=== PATIENT | female | born 2000 | race Caucasian/White ===

== ENCOUNTER 2023-01-16 21:20 | Emergency (ER) | payer OTHER ==
[~2023-01-16] VITALS: Ht 165.1 cm; Wt 65.8 kg
[2023-01-16] MEDS ORDERED: ESCITALOPRAM OX10 MG PO (21:32)
[2023-01-16] MEDS ORDERED: NORTREL 1-35 21 EACH PO (21:32)
[2023-01-16] MEDS ORDERED: FLOVENT HFA12 GM INH (21:33)
[2023-01-16] MEDS ORDERED: PROVENTIL HFA6.7 GM INH (21:34)
== END 2023-01-16 21:59 | disposition home or self-care (01) ==
LOC: ED 21:20
DX: S06.0XAA Concussion with loss of consciousness status unknown, initial encounter (principal); R11.0 Nausea; H53.149 Visual discomfort, unspecified; W22.8XXA Striking against or struck by other objects, initial encounter; Y93.68 Activity, volleyball (beach) (court); Y92.39 Other specified sports and athletic area as the place of occurrence of the external cause; Y99.8 Other external cause status

== ENCOUNTER 2024-01-05 19:52 | Emergency (ER) | payer SELFPAY ==
[~2024-01-05] VITALS: Ht 165.1 cm; Wt 79.4 kg
[~2024-01-05 19:52] MED LIST: ESCITALOPRAM OX10 MG PO; FLOVENT HFA12 GM INH; NORTREL 1-35 21 EACH PO; PROVENTIL HFA6.7 GM INH
[2024-01-05] MEDS ORDERED: SODIUM CHLORIDE 0.9% 1,000 ML IV ONE (20:10)
[2024-01-05] MEDS ORDERED: Ondansetron Hydrochloride 4 MG/2 ML VIAL IV ONE (20:10)
[2024-01-05] MEDS ORDERED: IOHEXOL 300 MG/ML 100 ML VIAL IV ONE (20:15)
[2024-01-05 20:19] LABS: BASO % 0.5 % (0.0-1.0); EOS # 0.1 10*3/uL (0.0-0.4); HEMATOCRIT 39.8 % (37.0-47.0); LYMPH # 1.6 10*3/uL (1.3-4.4); LYMPH % 20.7 % (27.0-41.0); MEAN CORPUSCULAR HGB CONC 33.7 g/dl (33.0-37.0); MEAN PLATELET VOLUME 10.3 fl (9.6-12.3); MONO # 0.4 10*3/uL (0.1-1.0); NEUT # 5.5 10*3/uL (2.3-7.9); NEUT % 72.4 % (47.0-73.0); PLATELET COUNT AUTOMATED 267 10*3/uL (130-400); RED BLOOD COUNT 4.47 10*6/uL (4.10-5.10); RED CELL DISTRI WIDTH 11.5 % (0-14.5); WHITE BLOOD COUNT 7.6 10*3/uL (4.8-10.8)
[2024-01-05 20:43] LABS: BILIRUBIN Negative (Negative); BLOOD Negative (Negative); CLARITY Clear (Clear); COLOR Yellow (Yellow); GLUCOSE Negative (Negative); KETONE Trace (Negative); LEUKO ESTERASE Negative (Negative); NITRITE Negative (Negative); SPECIFIC GRAVITY 1.025 (1.001-1.030)
[2024-01-05 20:49] LABS: ALKALINE PHOSPHATASE 63 U/L (46-116); BUN 13 mg/dl (9-23); CHLORIDE 107 mmol/L (98-107); LIPASE 39 U/L (12-53); POTASSIUM 3.6 mmol/L (3.4-5.1); SGPT/ALT 10 U/L (5-49); TOTAL PROTEIN 6.8 gm/dL (6.0-8.0)
[2024-01-05 21:02] LABS: BACTERIA 1+; MUCOUS 1+; WBC 0-2 wbc/hpf (0-5)
[2024-01-05] MEDS ORDERED: Ondansetron4 MG PO (22:35)
== END 2024-01-05 22:45 | disposition home or self-care (01) ==
LOC: ED 19:52
PROVIDERS: Physician Assistant Medical
DX: R10.11 Right upper quadrant pain (principal); J45.909 Unspecified asthma, uncomplicated; F41.9 Anxiety disorder, unspecified